=== PATIENT | female | born 1950 | race Caucasian/White ===

== ENCOUNTER 2017-06-18 01:00 | Emergency (ER) | payer MEDICARE, OTHER ==
[~2017-06-18] VITALS: Ht 172.7 cm; Wt 65.8 kg
[2017-06-18] MEDS ORDERED: 0.9 % SODIUM CHLORIDE 10 ML DISP.SYRIN. IV PRN (01:30)
--- NOTE | 2017-06-18 01:42 | PHYS DOC ---
Past History Past Medical History: Hypertension Past Surgical History: , Other Smoking: Non-smoker Alcohol Use: Heavy Drug Use: None Adult General Chief Complaint Chief Complaint: LACERATION/AVULSION HPI HPI Patient is a pleasant 66 roughly with a history of hypertension who been drinking tonight tripped and fell at home over a coffee table hitting her right ear and left hooper on the ground. She denies loss of consciousness, denies neck pain denies headache or chest pain or abdominal pain after her before the fall. Patient is intoxicated is not quite clear, she drank tonight although she says she is not an alcoholic and she is not having withdrawal symptoms. Patient has limited memory of the event. She was brought in by her the wound on her leg bleeding is stopped with his dressing. Patient denies any pain at this time and any change in vision problems speech at this time Review of Systems Review of Systems Constitutional: Denies fever or chills [] Eyes: Denies change in visual acuity, redness, or eye pain [] HENT: Denies nasal congestion or sore throat [] Respiratory: Denies cough or shortness of breath [] Cardiovascular: No additional information not addressed in HPI [] GI: Denies abdominal pain, nausea, vomiting, bloody stools or diarrhea [] : Denies dysuria or hematuria [] Musculoskeletal: Denies back pain or joint pain [] Integument: Denies rash or skin lesions does complain of ear pain over the right with a laceration of the ear and over the left lower leg Neurologic: Denies headache, focal weakness or sensory changes [] Endocrine: Denies polyuria or polydipsia [] All other systems were reviewed and found to be within normal limits, except as documented in this note. Current Medications Current Medications Current Medications Medications (Trade) Dose Ordered Sig/Gary Start Time Stop Time Status Last Admin Dose Admin Lidocaine HCl 20 ml 1X ONCE 06/18/17 01:30 06/18/17 01:31 UNV Multivitamins/ Minerals 10 ml/ Folic Acid 1 mg/ Thiamine HCl 100 mg/Sodium Chloride 1,011.2 ml @ 1,000 mls/ hr Q1H 06/18/17 01:30 UNV Sodium Chloride 1,000 ml @ 1,000 mls/hr Q1H 06/18/17 01:30 06/18/17 02:29 UNV Sodium Chloride (Normal Saline Flush) 10 ml QSHIFT PRN 06/18/17 01:30 UNV Allergies Allergies Allergies Coded Allergies Type Severity Reaction Last Updated Verified No Known Drug Allergies 06/18/17 No Physical Exam Physical Exam Of the vital signs recorded on the chart at this time patient noted to be tachycardic and hypertensive Constitutional: Well developed, well nourished, no acute distress, non-toxic appearance patient smells of alcohol she is slow to respond but appropriate. [] HENT: Normocephalic, atraumatic, sternal right pinna has a tear/laceration of the attachment point on the right measuring 1.5 cm length it is not actively bleeding oropharynx moist no oral lesions no tonsillar perjury, no oral exudates , nose normal. [] Eyes: PERRLA, EOMI, conjunctiva normal, no discharge. [] Neck: Normal range of motion, no tenderness, supple, no stridor. No midline tenderness palpation no obvious distracting injuries. [] Cardiovascular:Heart rate regular rhythm, no murmur [] Lungs & Thorax: Bilateral breath sounds clear to auscultation [] Abdomen: Bowel sounds normal, soft, no tenderness, no masses, no pulsatile masses. [] Skin: Warm, dry, no erythema, no rash. [] Back: No tenderness, no CVA tenderness. [] Extremities: 4 cm linear laceration and skin tear noted in the mid tibia on the left. No active bleeding no foreign body noted. It is 3-4 mm in depth 5 mm in width. It has torn some of the soft tissues. Neurologic: Alert and oriented X 3, normal motor function, normal sensory function, no focal deficits noted. [] Psychologic: Patient seems very intoxicated although her judgment is somewhat slowed seems appropriate at this time Current Patient Data Vital Signs Vital Signs Date Time Temp Pulse Resp B/P (MAP) Pulse Ox O2 Delivery O2 Flow Rate FiO2 06/18/17 01:22 98.4 107 18 96 Room Air Lab Results Laboratory Tests Test 06/18/17 01:42 White Blood Count 10.9 x10^3/uL (4.0-11.0) Red Blood Count 5.04 x10^6/uL (3.50-5.40) Hemoglobin 15.0 g/dL (12.0-15.5) Hematocrit 45.7 % (36.0-47.0) Mean Corpuscular Volume 91 fL (79-100) Mean Corpuscular Hemoglobin 30 pg (25-35) Mean Corpuscular Hemoglobin Concent 33 g/dL (31-37) Red Cell Distribution Width 15.1 % (11.5-14.5) H Platelet Count 264 x10^3/uL (140-400) Neutrophils (%) (Auto) 68 % (31-73) Lymphocytes (%) (Auto) 25 % (24-48) Monocytes (%) (Auto) 6 % (0-9) Eosinophils (%) (Auto) 1 % (0-3) Basophils (%) (Auto) 1 % (0-3) Neutrophils # (Auto) 7.4 x10^3uL (1.8-7.7) Lymphocytes # (Auto) 2.7 x10^3/uL (1.0-4.8) Monocytes # (Auto) 0.7 x10^3/uL (0.0-1.1) Eosinophils # (Auto) 0.1 x10^3/uL (0.0-0.7) Basophils # (Auto) 0.0 x10^3/uL (0.0-0.2) Ethyl Alcohol Level 294 mg/dL (0-10) H EKG EKG [] Radiology/Procedures Radiology/Procedures [] Signed PATIENT: YUDITH PADILLA ACCOUNT: [id number] : 1950 LOCATION: ER AGE: 66 SEX: F EXAM STATUS: REG ER ORD. PHYSICIAN: KIKE GREEN MD REASON: fall PROCEDURE: CT HEAD AND CERVICAL SPINE WO CT head and cervical spine without contrast 06/18/2017 CLINICAL INDICATION: Fall, head laceration. COMPARISON: None. TECHNIQUE: Multiple CT images of the head and cervical spine were obtained without contrast according to standard protocol. *One or more of the following individualized dose reduction techniques were utilized for this examination: 1. Automated exposure control. 2. Adjustment of the mA and/or kV according to patient size. 3. Use of iterative reconstruction technique. FINDINGS: Head: The ventricles and subarachnoid spaces are normal in size and configuration for age. No midline shift. No acute intracranial hemorrhage or extra-axial fluid collection. The soliz-white matter interfaces are maintained. No midline shift. The basal cisterns are patent. Partial opacification of ethmoid air cells. Cervical spine: No acute cervical spine fracture or traumatic malalignment. Moderate lateral dense arthrosis with osteophytic spurring. Multilevel cervical spondylosis with intervertebral calcification, marginal osteophyte formation and disc space narrowing greatest to a moderate degree at C5-C6. Posterior disc osteophyte complexes at C4-C5 and C5-C6. Multilevel uncovertebral and facet hypertrophy in combination with the cervical disc degeneration results in neural foraminal narrowing greatest to severe degree on the left at C5-C6. No significant spinal canal narrowing. The paraspinal soft tissues are unremarkable. There is a partially calcified hypodense nodule right lobe of the thyroid measuring 1.1 cm. IMPRESSION: Head: 1. No acute intracranial hemorrhage. Cervical spine: 1. No acute cervical spine fracture or traumatic malalignment. 2. Cervical spondylosis resulting in severe left neural foraminal narrowing at C5-C6. 3. Right lobe thyroid hypodensity measuring 1.1 cm. Nonemergent thyroid ultrasound is recommended, if not already performed. Electronically signed by: Kulwinder Yanes MD (06/18/2017 2:15 AM) [facility] DICTATED AND SIGNED BY: KULWINDER YANES MD DATE: 06/18/17207 Course & Med Decision Making Course & Med Decision Making Pertinent Labs and Imaging studies reviewed. (See chart for details) []Procedure note: Laceration repair left leg. After wound was prepped with Betadine and manual scrubbing. Patient had 6 mL of 2% lidocaine and reduced to the wound edges. Wound length was approximately 3.4 cm She gave me verbal permission to repair the wound using 4-0 Ethilon. I placed 12 interrupted sutures in rapid succession to bring the wound edges together. She tolerated the procedure well. There is no active blood loss, no foreign body noted. Patient in no complications and no complaints. She had the wound dressed with bacitracin ointment and a nonadherent gauze. Laceration repair right ear. Approximate 1.5; length. After verbal consent I used chlorhexidine swabs to remove blood clots clean the wound. Around the wound edges I used 3 mL of 2% lidocaine and reduced to wound edges. I used 4-0 Ethilon placed 4 interrupted sutures in rapid succession approximating the wound edges and inverting the signs. She tolerated the procedure well there is no active blood loss no foreign body noted. Patient had no complications and no complaints. She had the wound dressed with bacitracin ointment and a nonadherent gauze. Patient tells me that their symptoms given during CC are improved. We reviewed labs and radiology reports with patient and any family at bedside. Patient got a level is 294 along with a negative head CT and negative cervical neck CT. Patient was given precautions about drinking so much alcohol causing issues of imbalance. Head injury precautions were given to the family at the bedside. discharge: I've spoken with the patient and/or caregivers. I've explained the patient's condition, diagnosis and treatment plan based on information available to me at this time. I've answered the patient's and/or caregivers questions and addressed any concerns. The patient and/or caregivers have a good understanding the patient's diagnosis, condition and treatment plan as can be expected at this point. Vital signs have been stabilized. The patient's condition is stable for discharge from the emergency department. The patient will pursue further outpatient evaluation with her primary care provider or other designated consulting physician as outlined in the discharge instructions. Patient and/or caregivers are agreeable to this plan of care and follow-up instructions have been explained in detail. The patient and/or caregivers have received these instructions in written format and expressed understanding of these discharge instructions. The patient and her caregivers are aware that if any significant change in condition or worsening of symptoms should prompt him to immediately return to this of the closest emergency department. If an emergent department is not readily available I would encourage him to call 911. Mike Disclaimer Mike Disclaimer This electronic medical record was generated, in whole or in part, using a voice recognition dictation system. Departure Departure: Impression: Primary Impression: Closed head injury Additional Impressions: Laceration of left leg Laceration of right ear Alcohol intoxication Thyroid nodule Disposition: 01 HOME, SELF-CARE Condition: STABLE Referrals: PCP,UNKNOWN (PCP) Patient Instructions: Alcohol Intoxication, Facial Laceration, Head Injury, Adult, Laceration Care, Adult Additional Instructions: discharge: I've spoken with the patient and/or caregivers. I've explained the patient's condition, diagnosis and treatment plan based on information available to me at this time. I've answered the patient's and/or caregivers questions and addressed any concerns. The patient and/or caregivers have a good understanding the patient's diagnosis, condition and treatment plan as can be expected at this point. Vital signs have been stabilized. The patient's condition is stable for discharge from the emergency department. The patient will pursue further outpatient evaluation with her primary care provider or other designated consulting physician as outlined in the discharge instructions. Patient and/or caregivers are agreeable to this plan of care and follow-up instructions have been explained in detail. The patient and/or caregivers have received these instructions in written format and expressed understanding of these discharge instructions. The patient and her caregivers are aware that if any significant change in condition or worsening of symptoms should prompt him to immediately return to this of the closest emergency department. If an emergent department is not readily available I would encourage him to call 911. Laceration of the ear and have the sutures removed in approximately 7-10 days. Laceration of the lower left leg these have the sutures removed in 10-14 days. Please watch for signs of infection use the bacitracin ointment 3-4 times daily turn for any questions or concerns. Scripts Acetaminophen (TYLENOL) 325 Mg Tablet 1-2 TAB PO QID, #30 TAB 2 Refills Prov: KIKE GREEN MD 06/18/17 Bacitracin (BACITRACIN) 3.5 Gm Oint...g. 1 LUIZ TOP TID, #3.5 GM Prov: KIKE GREEN MD 06/18/17 Problem Qualifiers KIKE GREEN MD Jun 18, 2017 01:42
[2017-06-18] MEDS ORDERED: LIDOCAINE 2% 20 ML VIAL. IJ ONE (02:00)
[2017-06-18] MEDS ORDERED: IV NORMAL SALINE 1,000ML 1,000 ML IV SCH (02:00)
[2017-06-18] MEDS ORDERED: MVI, ADULT NO.4 WITH VIT K 10 ML, FOLIC ACID SYRINGE for ER 1 MG, THIAMINE 100 MG in IV... IV SCH ×4 (02:00)
[2017-06-18] MEDS ORDERED: THIAMINE 200 MG/2 ML VIAL. IV ONE (02:11)
[2017-06-18] MEDS ORDERED: FOLIC ACID 5 MG/ML SYRINGE for ER IV ONE (02:13)
[2017-06-18] MEDS ORDERED: MVI, ADULT NO.4 WITH VIT K 10 ML VIAL IV ONE (02:17)
[2017-06-18 02:18] LABS: BASO % 1 % (0-3); EOS # 0.1 x10^3/uL (0.0-0.7); EOS % 1 % (0-3); HEMATOCRIT 45.7 % (36.0-47.0); LYMPH # 2.7 x10^3/uL (1.0-4.8); LYMPH % 25 % (24-48); MEAN CORPUSCULAR HEMOGLOBIN 30 pg (25-35); MEAN CORPUSCULAR HGB CONC 33 g/dL (31-37); MEAN CORPUSCULAR VOLUME 91 fL (79-100); MONO # 0.7 x10^3/uL (0.0-1.1); MONO % 6 % (0-9); NEUT # 7.4 x10^3uL (1.8-7.7); NEUT % 68 % (31-73); PLATELET COUNT 264 x10^3/uL (140-400); RED BLOOD COUNT 5.04 x10^6/uL (3.50-5.40); RED CELL DISTRIBUTION WIDTH 15.1 % (11.5-14.5); WHITE BLOOD COUNT 10.9 x10^3/uL (4.0-11.0)
--- NOTE | 2017-06-18 02:19 | RAD ---
CT head and cervical spine without contrast 06/18/2017 CLINICAL INDICATION: Fall, head laceration. COMPARISON: None. TECHNIQUE: Multiple CT images of the head and cervical spine were obtained without contrast according to standard protocol. *One or more of the following individualized dose reduction techniques were utilized for this examination: 1. Automated exposure control. 2. Adjustment of the mA and/or kV according to patient size. 3. Use of iterative reconstruction technique. FINDINGS: Head: The ventricles and subarachnoid spaces are normal in size and configuration for age. No midline shift. No acute intracranial hemorrhage or extra-axial fluid collection. The soliz-white matter interfaces are maintained. No midline shift. The basal cisterns are patent. Partial opacification of ethmoid air cells. Cervical spine: No acute cervical spine fracture or traumatic malalignment. Moderate lateral dense arthrosis with osteophytic spurring. Multilevel cervical spondylosis with intervertebral calcification, marginal osteophyte formation and disc space narrowing greatest to a moderate degree at C5-C6. Posterior disc osteophyte complexes at C4-C5 and C5-C6. Multilevel uncovertebral and facet hypertrophy in combination with the cervical disc degeneration results in neural foraminal narrowing greatest to severe degree on the left at C5-C6. No significant spinal canal narrowing. The paraspinal soft tissues are unremarkable. There is a partially calcified hypodense nodule right lobe of the thyroid measuring 1.1 cm. IMPRESSION: Head: 1. No acute intracranial hemorrhage. Cervical spine: 1. No acute cervical spine fracture or traumatic malalignment. 2. Cervical spondylosis resulting in severe left neural foraminal narrowing at C5-C6. 3. Right lobe thyroid hypodensity measuring 1.1 cm. Nonemergent thyroid ultrasound is recommended, if not already performed. Electronically signed by: Gonzalo Yanes MD (06/18/2017 2:15 AM) [facility]
[2017-06-18 02:40] LABS: ALBUMIN 3.9 g/dL (3.4-5.0); CALCIUM 9.2 mg/dL (8.5-10.1); CREATININE 1.1 mg/dL (0.6-1.0); DIRECT BILIRUBIN 0.1 mg/dL (0.0-0.2); GFR 49.7; MAGNESIUM 1.8 mg/dL (1.8-2.4); POTASSIUM 3.6 mmol/L (3.5-5.1); TOTAL BILIRUBIN 0.2 mg/dL (0.2-1.0); TOTAL PROTEIN 7.9 g/dL (6.4-8.2)
[2017-06-18] MEDS ORDERED: ACET325T9 PO (02:43)
[2017-06-18] MEDS ORDERED: BACI3.5O8 TOP (02:43)
[2017-06-18 02:45] VITALS: BP 151/86
== END 2017-06-18 03:00 | disposition home or self-care (01) ==
LOC: ER 01:00
DX: F10.129 Alcohol abuse with intoxication, unspecified (principal); S09.90XA Unspecified injury of head, initial encounter; S01.311A Laceration without foreign body of right ear, initial encounter; S81.812A Laceration without foreign body, left lower leg, initial encounter; E04.1 Nontoxic single thyroid nodule; W01.198A Fall on same level from slipping, tripping and stumbling with subsequent striking against other object, initial encounter; Y93.89 Activity, other specified; Y99.8 Other external cause status; Y92.098 Other place in other non-institutional residence as the place of occurrence of the external cause
CPT/HCPCS: 12002; 12011; 36415; 70450; 72125; 80048; 80076; 83735; 85025; 96365; 99285; G0480; 96360; J7030